=== PATIENT | female | born 1965 | race Caucasian/White ===

== ENCOUNTER → 2017-10-02 | Outpatient (CLI) | payer MEDICARE ==
[~2017-10-02] MED LIST: CRESTOR10 MG PO; DEPAKOTE500 MG PO; Depakote250 MG PO; FOSAMAX70 MG PO; INVOKAMET1 TAB PO; JANUVIA50 MG PO; KEPPRA750 MG PO; LAMICTAL25 MG PO; LIPITOR20 MG PO; LORAZEPAM1 MG PO; METFORMIN HYDR500 MG PO; METFORMIN500 MG PO; MICRONASE5 MG PO; OMEPRAZOLE20 MG PO; ONGLYZA5 MG PO; OYSTER CALCIUM500 M1 PO; PRINIVIL5 MG PO; VITAMIN D; VITAMIN D400 I1 PO; VITAMIN D50000 I3 PO; ZESTRIL; ZESTRIL2.5 MG PO
== END | disposition home or self-care (01) ==
LOC: MAMMO 08:43
DX: N63.20 Unspecified lump in the left breast, unspecified quadrant (principal); R92.8 Other abnormal and inconclusive findings on diagnostic imaging of breast

== ENCOUNTER 2017-10-17 20:42 | Emergency (ER) | payer MEDICARE ==
[~2017-10-17] VITALS: Ht 149.8 cm; Wt 68.0 kg
[~2017-10-17 20:42] MED LIST changes: -KEPPRA750 MG PO; -LORAZEPAM1 MG PO; -METFORMIN HYDR500 MG PO
[2017-10-17] MEDS ORDERED: LORAZEPAM1 MG PO (20:58)
[2017-10-17] MEDS ORDERED: KEPPRA750 MG PO (20:59)
[2017-10-17] MEDS ORDERED: METFORMIN HYDR500 MG PO (20:59)
[2017-10-17 21:57] LABS: BASO % 0.3 % (0.0-1.0); EOS % 0.4 % (1.0-4.0); HEMATOCRIT 46.1 % (37.0-47.0); HEMOGLOBIN 14.7 g/dl (12.0-16.0); LYMPH # 1.6 10*3/uL (1.3-4.4); LYMPH % 13.8 % (27.0-41.0); MEAN CELL VOLUME 88.3 fl (81.0-99.0); MEAN CORPUSCULAR HGB 28.2 pg (27.0-31.0); MEAN CORPUSCULAR HGB CONC 31.9 g/dl (33.0-37.0); MEAN PLATELET VOLUME 9.5 fl (9.6-12.3); MONO # 0.4 10*3/uL (0.1-1.0); MONO % 3.6 % (3.0-9.0); NEUT # 9.2 10*3/uL (2.3-7.9); NEUT % 81.5 % (47.0-73.0); PLATELET COUNT AUTOMATED 275 10*3/uL (130-400); RED BLOOD COUNT 5.22 10*6/uL (4.10-5.10); RED CELL DISTRI WIDTH 14.1 % (0-14.5); WHITE BLOOD COUNT 11.3 10*3/uL (4.8-10.8)
[2017-10-17 22:09] LABS: INTERNATIONAL NORM RATIO 0.9 (2.0-3.5)
== END 2017-10-17 22:25 | disposition home or self-care (01) ==
LOC: ED 20:42
PROVIDERS: Emergency Medicine
DX: R04.0 Epistaxis (principal); R05 Cough; R51 Headache; Z90.710 Acquired absence of both cervix and uterus; Z79.899 Other long term (current) drug therapy; Z88.6 Allergy status to analgesic agent; Z88.5 Allergy status to narcotic agent; Z88.1 Allergy status to other antibiotic agents; Z88.8 Allergy status to other drugs, medicaments and biological substances

== ENCOUNTER → 2018-04-23 | Outpatient (CLI) | payer MEDICARE ==
[~2018-04-23] MED LIST changes: +KEPPRA750 MG PO; +LORAZEPAM1 MG PO; +METFORMIN HYDR500 MG PO
== END | disposition home or self-care (01) ==
LOC: RAD 14:51
DX: M24.141 Other articular cartilage disorders, right hand (principal); M79.89 Other specified soft tissue disorders; R60.0 Localized edema

== ENCOUNTER → 2019-11-10 | Outpatient (CLI) | payer MEDICARE, MEDICAID | END | disposition home or self-care (01) | LOC: MAMMO 14:00 | DX: N63.10 Unspecified lump in the right breast, unspecified quadrant (principal); R92.2 Inconclusive mammogram ==

== ENCOUNTER → 2021-06-27 | Outpatient (CLI) | payer MEDICARE, MEDICAID | END | disposition home or self-care (01) | LOC: RAD 15:06 | PROVIDERS: ATTEND Family Medicine | DX: M16.11 Unilateral primary osteoarthritis, right hip (principal); M70.61 Trochanteric bursitis, right hip ==

== ENCOUNTER → 2022-04-10 | Outpatient (CLI) | payer MEDICARE, MEDICAID | END | disposition home or self-care (01) | LOC: RAD 15:48 | PROVIDERS: ATTEND Family Medicine | DX: M48.04 Spinal stenosis, thoracic region (principal); M41.54 Other secondary scoliosis, thoracic region; M85.88 Other specified disorders of bone density and structure, other site ==

== ENCOUNTER → 2022-04-24 | Outpatient (CLI) | payer MEDICARE, MEDICAID | END | disposition home or self-care (01) | LOC: RAD 16:37 | PROVIDERS: ATTEND Family Medicine | DX: M79.671 Pain in right foot (principal) ==

== ENCOUNTER → 2022-12-28 | Outpatient (CLI) | payer MEDICARE, MEDICAID | END | disposition home or self-care (01) | LOC: US 14:14 | PROVIDERS: ATTEND Family Medicine | DX: N28.1 Cyst of kidney, acquired (principal); M54.9 Dorsalgia, unspecified ==

== ENCOUNTER → 2023-08-05 | Outpatient (CLI) | payer MEDICARE, MEDICAID | END | disposition home or self-care (01) | LOC: RAD 12:15 | PROVIDERS: ATTEND Nurse Practitioner Family | DX: M25.511 Pain in right shoulder (principal) ==

== ENCOUNTER → 2023-10-02 | Outpatient (CLI) | payer MEDICARE, MEDICAID | END | disposition home or self-care (01) | LOC: MAMMO 13:00 | PROVIDERS: ATTEND Nurse Practitioner Family | DX: N63.10 Unspecified lump in the right breast, unspecified quadrant (principal); R92.30 Dense breasts, unspecified ==

== ENCOUNTER → 2024-04-16 | Outpatient (CLI) | payer MEDICARE, MEDICAID | END | disposition home or self-care (01) | LOC: RAD 12:21 | PROVIDERS: ATTEND Nurse Practitioner Family | DX: S32.040A Wedge compression fracture of fourth lumbar vertebra, initial encounter for closed fracture (principal); M54.41 Lumbago with sciatica, right side; M54.42 Lumbago with sciatica, left side; M47.814 Spondylosis without myelopathy or radiculopathy, thoracic region; M41.84 Other forms of scoliosis, thoracic region; R29.6 Repeated falls; M81.0 Age-related osteoporosis without current pathological fracture; M54.6 Pain in thoracic spine; S22.030A Wedge compression fracture of third thoracic vertebra, initial encounter for closed fracture; X58.XXXA Exposure to other specified factors, initial encounter; Y93.89 Activity, other specified; Y92.89 Other specified places as the place of occurrence of the external cause; Y99.8 Other external cause status ==

== ENCOUNTER → 2025-02-10 | Outpatient (CLI) | payer MEDICARE, MEDICAID | END | disposition home or self-care (01) | LOC: MAMMO 08:00 | PROVIDERS: ATTEND Nurse Practitioner Family | DX: R92.333 Mammographic heterogeneous density, bilateral breasts (principal); R92.1 Mammographic calcification found on diagnostic imaging of breast; M81.8 Other osteoporosis without current pathological fracture ==

== ENCOUNTER → 2025-04-07 | Outpatient (CLI) | payer MEDICARE, MEDICAID | END | disposition home or self-care (01) | LOC: LAB 13:16 | PROVIDERS: ATTEND Nurse Practitioner Family | DX: M81.0 Age-related osteoporosis without current pathological fracture (principal) ==